=== PATIENT | female | born 1970 | race African-American/Black ===

== ENCOUNTER 2020-01-09 13:05 | Emergency (ER) | payer OTHER ==
[2020-01-09] MEDS ORDERED: LIDOCAINE 5% TOPICAL PATCH ONE (13:33)
[2020-01-09] MEDS ORDERED: ACETAMINOPHEN 500 MG TABLET (FP) PO ONE (13:33)
[2020-01-09] MEDS ORDERED: ACETAMINOPHEN 500 MG TABLET (FP) ONE (13:33)
[2020-01-09] MEDS ORDERED: LIDOCAINE 5% TOPICAL PATCH TP ONE (13:33)
[2020-01-09 13:34] VITALS: BP 141/90; PULSE 77; TEMP 99.1; BMI 37.5
== END 2020-01-09 14:22 | disposition home or self-care (01) ==
LOC: FER 13:05
DX: M54.6 Pain in thoracic spine (principal)
CPT/HCPCS: 99284-25